=== PATIENT | male | born 1990 | race Caucasian/White ===

== ENCOUNTER → 2018-06-11 | Outpatient (CLI) | payer OTHER | LOC: M LRY 15:37 | DX: S22.31XA Fracture of one rib, right side, initial encounter for closed fracture (principal); R10.11 Right upper quadrant pain; R07.81 Pleurodynia; X58.XXXA Exposure to other specified factors, initial encounter; Y92.9 Unspecified place or not applicable | CPT/HCPCS: 71101; 81002 ==